=== PATIENT | female | born 1995 | race African-American/Black ===

== ENCOUNTER 2016-07-19 17:37 | Emergency (ER) | payer SELFPAY ==
[2014-06-03 00:26] VITALS: BMI 29.7
[~2016-07-19 17:37] MED LIST: IBUPROFEN600 MG PO; PERCOCET 5-3251 TAB PO; PRENAVITE1 TAB PO
[2016-07-19 18:15] LABS: BASOPHILS 0.3 % (0.0-2.0); EOSINOPHILS 3.5 % (0-7); HEMATOCRIT 32.7 % (36.0-48.0); IMMATURE GRANULOCYTES 0.3 % (0-5); LYMPHOCYTES 30.4 % (15-50); MCHC 30.6 g/dL (31.0-37.0); MCV 78.6 fL (80.0-100.0); MEAN PLATELET VOLUME 8.7 fL (7.4-10.4); MONOCYTES 7.7 % (2-11); NEUTROPHILS 57.8 % (40-80); PLATELET COUNT 211 10x3/uL (130-400); RBC 4.16 10x6/uL (4.00-5.40); RDW 16.8 % (11.5-14.5); WBC 7.1 10x3/uL (4.8-10.8)
[2016-07-19 18:46] LABS: ALBUMIN 3.3 g/dL (3.4-5.0); ALKALINE PHOSPHATASE 50 U/L (46-116); ALT (SGPT) 17 U/L (10-68); BILIRUBIN - TOTAL 0.13 mg/dL (0.2-1.3); CALC OSMOLALITY 282 mosm/kg (275-300); CALCIUM 8.6 mg/dL (8.5-10.1); CARBON DIOXIDE 28.7 mmol/L (21.0-32.0); CHLORIDE - SERUM 107 mmol/L (98-107); CREATININE - SERUM 0.9 mg/dL (0.6-1.3); POTASSIUM - SERUM 3.5 mmol/L (3.5-5.1); PROTEIN - SERUM 6.8 g/dL (6.4-8.2); SODIUM 144 mmol/L (136-145); UREA NITROGEN 8 mg/dL (7-18); eGFR NON AFRICAN AMERICAN 83 mL/min (90-120)
[2016-07-19 18:48] LABS: GLUCOSE 63 mg/dL (74-106)
== END 2016-07-19 19:45 | disposition home or self-care (01) ==
LOC: D.ER 17:37
PROVIDERS: Emergency Medicine
DX: S16.1XXA Strain of muscle, fascia and tendon at neck level, initial encounter (principal); V49.9XXA Car occupant (driver) (passenger) injured in unspecified traffic accident, initial encounter; Y93.89 Activity, other specified; Y92.410 Unspecified street and highway as the place of occurrence of the external cause; S29.012A Strain of muscle and tendon of back wall of thorax, initial encounter; S00.83XA Contusion of other part of head, initial encounter

== ENCOUNTER 2016-10-16 15:43 | Emergency (ER) | payer BC ==
[2014-06-03 00:26] VITALS: BMI 29.7
[2016-10-16 17:27] LABS: BASOPHILS 0.1 % (0-2); EOSINOPHILS 5.5 % (0-7); HEMATOCRIT 34.1 % (36.0-48.0); HEMOGLOBIN 10.4 g/dL (12-16); IMMATURE GRANULOCYTES 0.1 % (0-5); LYMPHOCYTES 25.2 % (15-50); MCH 22.4 pg (26.0-34.0); MCHC 30.5 g/dL (31.0-37.0); MCV 73.3 fL (80.0-100.0); MEAN PLATELET VOLUME 8.9 fL (7.4-10.4); MONOCYTES 3.7 % (2-11); NEUTROPHILS 65.4 % (40-80); PLATELET COUNT 202 10x3/uL (130-400); RBC 4.65 10x6/uL (4.00-5.40); RDW 18.7 % (11.5-14.5); WBC 7.6 10x3/uL (4.8-10.8)
[2016-10-16 17:33] LABS: HCG URINE NEGATIVE (NEGATIVE)
[2016-10-16 17:40] LABS: ALBUMIN 3.2 g/dL (3.4-5.0); ALKALINE PHOSPHATASE 55 U/L (46-116); ALT (SGPT) 18 U/L (10-68); BILIRUBIN - TOTAL 0.42 mg/dL (0.2-1.3); CALC OSMOLALITY 274 mosm/kg (275-300); CALCIUM 8.4 mg/dL (8.5-10.1); CHLORIDE - SERUM 103 mmol/L (98-107); CREATININE - SERUM 0.7 mg/dL (0.6-1.3); POTASSIUM - SERUM 3.8 mmol/L (3.5-5.1); PROTEIN - SERUM 6.7 g/dL (6.4-8.2); SODIUM 138 mmol/L (136-145); UREA NITROGEN 7 mg/dL (7-18); eGFR NON AFRICAN AMERICAN > 90 mL/min (90-120)
[2016-10-16 17:43] LABS: APPEARANCE HAZY (CLEAR); BILIRUBIN NEGATIVE (NEGATIVE); COLOR YELLOW (YELLOW); GLUCOSE 115 mg/dL (74-106); GLUCOSE NEGATIVE (NEGATIVE); KETONE NEGATIVE (NEGATIVE); LEUKOCYTE ESTERASE 1+ (NEGATIVE); NITRITE NEGATIVE (NEGATIVE); PROTEIN NEGATIVE (NEGATIVE); UROBILINOGEN NORMAL (NORMAL)
[2016-10-16 17:44] LABS: BACTERIA MODERATE /hpf (NONE SEEN); EPITHELIAL CELLS 0-5 /hpf (0-5); RED CELLS - URINE NONE SEEN /hpf (0-5); WHITE CELLS - URINE 0-5 /hpf (0-5)
== END 2016-10-16 20:10 | disposition left against medical advice (07) ==
LOC: D.ER 15:43
PROVIDERS: Family Medicine
DX: R10.30 Lower abdominal pain, unspecified (principal)